=== PATIENT | female | born 1935 | race Caucasian/White ===

== ENCOUNTER 2016-06-01 17:07 | Inpatient (IN) | payer MEDICARE ==
[~2016-06-01] VITALS: Ht 162.6 cm; Wt 57.2 kg
[~2016-06-01 17:07] MED LIST: AUGMENTIN 875-1 EACH PO; BACTRIM DS 8001 TA1 PO; HYDROCHLOROTHIA25 M1 PO; INCRUSE EL62.5 MCG/A IH; LEVAQUIN500 MG PO; PREDNISONE 20MG20 MG PO; PROAIR HFA0.09 MG/AC IH; SYMBICORT 10.10.2 M1 IH
[2016-06-01 17:38] VITALS: BP 109/59
[2016-06-01 17:43] VITALS: BP 109/59
[2016-06-01 18:09] LABS: HEMOGLOBIN 11.8 g/dL (12.2-16.2); LYMPH # 0.5 K/mm3 (0.7-4.5)
[2016-06-01 18:30] LABS: NEUTROPHILS 83 % (42-76)
--- NOTE | 2016-06-01 18:55 | HISTORY AND PHYSICAL REPORT ---
Demographics: Admit date: 06/01/16 Chief complaint: shortness of breath, abdominal pain PRIMARY DIAGNOSIS: HYPOXIA Allergies: Coded Allergies: No Known Allergies (05/24/15) History of present illness: History of present illness: 80 year old female with history of COPD and hypoxia presented to office today with acute onset of abdominal pain last evening. SHe had a restless night without sleep due to pain. Some nausea and some loose stools but no diarrhea. Today pain has been intermittent and more concentrated in the right lower chest and RUQ of abdomen. On exam she was found to be hypoxic with pulse ox of 75% on room air and was admitted for management of likely recurrent CAP and uknown etiology of abdominal pain. Past medical history: Family HX Diabetes No CAD No Hypertension Yes Hyperlipidemia No Cancer No TB No Immunization HX DT/Tetanus Unknown Flu 2015-FSN Pneumonia Received In Past TB Test in last year No General CAD? No Angina: No FL: No Hypertension? Yes Hyperlipidemia? No CHF? No DVT? No PE? No COPD? Yes Asthma? Yes Anemia? No GERD? No Gastric ulcers? No GI Bleed? No Hernia? No Thyroid Problems? No Hypothyroidism? No CVA? No Seizures? No Diabetes? No Renal Insuffiency? No UTI? Yes Stones? No BPH? No GB Disease: No Nephritic Syndrome? No Asplenia? No Hepatitis? No Sickle Cell Disease? No Arthritis? Yes Migraines? No Cataracts? No Glaucoma? No MRSA? No HIV? No TB? No Anxiety? No Depression? No Cancer? No Past Surgical HX Previous Surgery?N CATARACT SX BI-LAT T&A L-KNEE REPAIR Current home meds: Active Scripts BUDESONIDE/FORMOTEROL FUMARATE (Symbicort 160-4.5 Mcg Inhaler) 2 AER IH BID #1 AER Ref 2 Prov: 01/17/16 UMECLIDINIUM BROMIDE (Incruse Ellipta) 62.5 MCG IH DAILY #1 POW Prov: 01/17/16 Discontinued Scripts Amoxicillin/Potassium Clav (Augmentin 875-125 Tablet) 1 EACH PO BID #14 TAB Prov: 01/17/16 DC: 06/01/16 6575 Reported Medications HYDROCHLOROTHIAZIDE (Hydrochlorothiazide) 25 MG PO DAILY Albuterol Sulfate (Proair Hfa) 2 PUFF IH Q6HP PRN BREATHING Social Hx: Smoking HX Tobacco No Alcohol Alcohol: No Hx of Drug Use Drug Use? No Patien't marital status is single Patient's support system is excellent Review of systems: Constitutional chills, malaise, weakness. No: fever. Eyes No: no symptoms reported. Ears, Nose, Mouth, Throat No no symptoms reported Respiratory see HPI, shortness of breath, SOB at rest. No: cough. Cardiovascular edema, No palpitations, No syncope Gastrointestinal/Abdominal see HPI Genitourinary No: dysuria, frequency, hesitancy, hematuria. Musculoskeletal other (hurt all over). Skin No: no symptoms reported. Neurological Yes: weakness. Psychiatric Yes: anxious. Exam: Lab data for last 24 hours: Laboratory Tests 06/01/16 1800: Sodium 138, Potassium 3.7, Chloride 100, Carbon Dioxide 30, BUN 20 H, Creatinine 0.8, Estimated Creat Clear 49 L, Estimated GFR (MDRD) 69, Glucose 99 , Calcium 8.9 06/01/16 1800: B-Natriuretic Peptide 139 H, D-Dimer 1440 *H, WBC 10.2, RBC 4.46, Hgb 11.8 L, Hct 38.5, MCV 86.2, RDW 16.5, Plt Count 193, MPV 6.9 L, Gran % 92.2 H, Gran # 9.4 H, Total Counted 100, Lymphocytes % 5.0 L, Monocytes % 2.7, Eosinophils % 0.1, Basophils % 0.1, Neutrophils 83 H, Lymphocytes (Manual) 11, Lymphocytes # 0.5 L, Monocytes (Manual) 5, Monocytes # 0.3, Eosinophils # 0.0, Eosinophils # (Manual) 1, Basophils # 0.0, Platelet Estimate NORMAL, Hypochromasia 1+, PUBS MCHC 30.6 L, MCH 26.4 L Microbiology 06/01 UNK BLOOD: Anaerobic Blood Culture - ORD 06/01 UNK BLOOD: Aerobic Blood Culture - ORD 06/01 UNK BLOOD: Anaerobic Blood Culture - ORD 06/01 UNK BLOOD: Aerobic Blood Culture - ORD Admission vital signs: 1ST Vital Signs Result Date Time Pulse Ox 92 06/01 1738 O2 Delivery OXYGEN 06/01 1738 B/P 109/59 06/01 1738 Temp 98.3 06/01 1738 Pulse 98 06/01 1738 Resp 18 06/01 1738 Additional information: Pleasant female in mild respiratory distress. Wears hearing aides, clear rhinorrhea, oropharynx unremarkable. Neck supple. Heart with RRR. Lungs diffusely diminished but no overt rales or rhonchi. Abdomen thin, soft, tender in the RUQ, BS normal. 1+ edema bilateral lower extremities. Alert and oriented x 3 Plan: Problem List 1. COPD with acute exacerbation Assessment/Plan oxygen support, review labs and imaging when available, begin IV antibiotics, pulmonary toilet with scheduled nebulizer treatments 2. Hypoxia Assessment/Plan CXR and labs including DDimer pending. Oxygen support 3. Abdominal pain, right upper quadrant Assessment/Plan acute onset, severe intensity. Rec CT abd/pelvis and treat as indicated Plan: see above at 9027
[2016-06-01 19:10] LABS: ALLEN'S TEST ACCEPTABLE; ARTERIAL TCO2 27.4 MMOL/L (23-27); OXYGEN 28% N/C.
[2016-06-01 19:39] VITALS: BP 123/61
[2016-06-01 20:05] VITALS: BP 123/61
[2016-06-01 23:28] VITALS: BP 119/61
[2016-06-02] VITALS (7 sets, daily range): BP systolic 86–121; BP diastolic 50–64
[2016-06-02 04:26] LABS: URINE BILIRUBIN - DIPSTICK NEGATIVE (NEG); URINE BLOOD TRACE-LYSED (NEG)
[2016-06-02 04:29] LABS: URINE SQUAMOUS CELLS OCC #/hpf (0-5)
--- NOTE | 2016-06-02 07:09 | PHARMACY CLINIC NOTE ---
Patient Demographics Patient Demographics Admission date: 06/01/16 Date: 06/02/16 Time: 07 Allergies Coded Allergies: No Known Allergies (05/24/15) HEIGHT- FT: 5 IN: 4.00 K.127 VTE General Information Labs: Laboratory Tests 06/01 1800 Hematology Hgb (12.2 - 16.2 g/dL) 11.8 L Hct (37.0 - 47.0 %) 38.5 Plt Count (142 - 424 K/mm3) 193 Disclaimer The following section includes nursing documentation that has been pulled in for pharmacy review. Patient's VTE score: 3 Patient's VTE Risk: LOW RISK Clinical trial participant? No VTE prophylaxis NQF [id number] VTE prophylaxis ordered? Yes Type of prophylaxis/treatment: COMFORT at 0709
[2016-06-02 07:21] LABS: LYMPH # 0.6 K/mm3 (0.7-4.5); LYMPH % 6.8 % (10-50.0)
[2016-06-02 07:25] LABS: HEMOGLOBIN 10.4 g/dL (12.2-16.2)
--- NOTE | 2016-06-02 08:46 | ACUTE CARE PROGRESS NOTE (QUA) ---
Progress Notes Subjective Date 06/02/16 Time 0842 Note No events overnight. States that she was able to rest. Abdominal pain is resolved but she continues to have some intermittent right-sided chest pain. Appears mildly dyspneic at rest. Ventimask in place. Alert and oriented x 3. Heart with RRR, lungs with more dense crackles in the right base. Abdomen soft, thin, NT/ND, BS present. Trace edema in the right lower extremity. Patient/family reports: feeling better, pain, cough Nursing reports: no complaints Objective Findings Last VS-Temp:99.2 B/P:105/50 Pulse:99 Resp:20 SaO2:93 OXYGEN Last weight lbs:117 oz:2 K.127 Method:Bed Scales Reviewed: medications, vital signs, lab results, radiology report Assessment/Plan Problem List 1. COPD with acute exacerbation Assessment/Plan: add steroids today 2. Hypoxia Assessment/Plan: continue oxygen supplement and wean as tolerated 3. Abdominal pain, right upper quadrant Assessment/Plan: preliminary CT negative for acute findings 4. Pneumonia involving right lung Assessment/Plan: Continue IV levaquin, FU on cultures when available 5. D-dimer, elevated Assessment/Plan: with significant pneumonia and right lung effusion, further workup not indicated at this time. Patient condition Stable, Guarded Plan: continue current care This inpt stay is expected to cross 2 MNs from start of care Yes at 1527
--- NOTE | 2016-06-02 11:42 | RADIOLOGY REPORT PS360 ---
CHEST(2 VIEWS-NOT PORTABLE) COMPARISON: PA and lateral chest 01/14/2016 HISTORY: Cough, suspect pneumonia TECHNIQUE: PA and lateral chest FINDINGS: Underlying emphysematous changes are again noted with hyperexpansion lung gant. Cardiac size is normal however there is mild vascular congestion. There is ill-defined pneumonic infiltrate right middle lobe with partial collapse and with partial silhouetting of the right heart border. There is pneumonia involving the posterior basilar segment right lower lobe as well. There is blunting of the right costo phrenic angle and there likely is a small pleural effusion. There is kyphotic curvature generalized osteopenia the thoracic spine. IMPRESSION: 1. Right middle lobe pneumonia with partial collapse in addition to pneumonia involving the right lower lobe. 2. Mild vascular congestion and small right pleural effusion likely representing mild chronic congestive failure superimposed upon underlying emphysematous change
--- NOTE | 2016-06-02 11:58 | RADIOLOGY REPORT PS360 ---
CT ABD PELVIS W/ CONTRAST COMPARISON: None HISTORY: Generalized abdominal pain, patient with known pneumonia TECHNIQUE: Multiaxial scans obtained from hemidiaphragms to the pelvic floor and were performed with IV and oral contrast. Sagittal and coronal reformats were evaluated as well. FINDINGS: Scans through the lower chest show a pneumonic infiltrate right middle lobe with partial collapse of the right middle lobe. There also is a coarse patchy ill-defined pneumonia in the right lower lobe primarily posterior basal segment and this is associated with a small to moderate-sized reactive pleural effusion. There is mild cardiomegaly and the pleural fluid could be secondary to mild chronic congestive failure. The liver is normal size showing a small 1 cm hepatic cyst anterior aspect right lobe. The spleen stomach Eckerson gallbladder appear grossly normal. The adrenal glands are normal. The kidneys are normal in size and show symmetrical function with no hydronephrosis or other abnormality. The small bowel appear grossly normal except for mildly dilated mid to distal small bowel loop left lower quadrant. I do not definitely identify the appendix but there are no pericecal inflammatory changes. There is oral contrast in the ascending and descending colon. The uterus is normal size and there is apparent calcified uterine fibroid noted. Urinary bladder is decompressed. Is no free fluid in the pelvis. There is mild degenerative disc disease L4-5 level. There is diffuse arteriosclerotic calcification of the abdominal aorta but there is no aneurysm. IMPRESSION: Right middle lobe and right lower lobe pneumonia with associated small right pleural effusion either reactive or possibly secondary to mild chronic congestive heart failure 2. Mildly dilated loops of small bowel left lower quadrant possibly reflecting a mild enteritis but there is no evidence of obstruction, agree with the [facility] report.
[2016-06-03] VITALS (7 sets, daily range): BP systolic 93–121; BP diastolic 49–63
[2016-06-03 06:51] LABS: HEMOGLOBIN 9.5 g/dL (12.2-16.2); LYMPH # 0.3 K/mm3 (0.7-4.5); LYMPH % 6.9 % (10-50.0)
--- NOTE | 2016-06-03 07:42 | ACUTE CARE PROGRESS NOTE (QUA) ---
See Addendum Progress Notes Subjective Date 06/03/16 Time 0738 Note No events overnight. She appears much more comfortable this morning, on [place] oxygen, and reports that her right chest is still sore but much improved. No fevers overnight. WBC normal this morning. Sputum culture pending. Daughter at BS. Patient alert, oriented x 3, NAD. Heart with RRR, lungs with better air movement, faint rales in the right base. Abdomen soft, NT/ND, BS present. No edema. Patient/family reports: feeling better, cough, shortness of breath Nursing reports: no complaints Objective Findings Last VS-Temp:98.8 B/P:93/49 Pulse:80 Resp:20 SaO2:92 OXYGEN Last weight lbs:117 oz:3 K.155 Method:Bed Scales Reviewed: medications, vital signs, lab results Assessment/Plan Problem List 1. COPD with acute exacerbation 2. Hypoxia 3. Abdominal pain, right upper quadrant 4. Pneumonia involving right lung Assessment/Plan: with partial collapse RML. FU CXR pending this morning but exam significantly improved. Continue IV levaquin. Would recommend pulmonary rehabiliation post- discharge and may need supplement oxygen at home. 5. D-dimer, elevated Patient condition Improving Plan: continue current care This inpt stay is expected to cross 2 MNs from start of care Yes at 0742 at 0806
--- NOTE | 2016-06-03 08:30 | RADIOLOGY REPORT PS360 ---
CHEST-PORTABLE Ordering Physician: Nilson Coffman MD Patient Age: 80 years: Female HISTORY: re-evaluate pneumonia, effusionfollow up pneumonia. TECHNIQUE: AP portable upright chest COMPARISON. 01/14/2016 and most recent chest film 06/02/2015 FINDINGS Underlying COPD and emphysematous changes. Slight progression of density at the right lung base further obscuring the right hemidiaphragm. Previous June 01, 2016 chest films showed RML partial collapse along with pneumonia involving the right lower lobe. These features are again evident and show no improvement. If anything appear more pronounced on today's study with less optimal expansion right lung. Right heart border is obscured by the right middle lobe and airspace disease.. RML has not reexpanded. Right lower lobe infiltrate spans across the inferior right lung base above the right hemidiaphragm and obscures right hemidiaphragm. Cannot exclude a small pleural effusion as well. This chest film is rotated to the right which may accentuate these findings as well as the sections with the more pronounced lung markings on right. Difficult to exclude early interstitial infiltrate right mid and upper lung on this study. The left lung appears unchanged hyperexpanded with chronic changes. There is some mild vascular engorgement but no overt CHF. The heart is normal in size. This CXR rotated to the right but there does seem to question slight shift mediastinum to the right which may reflect volume loss right lung base IMPRESSION----- No improvement. Slight Progression of findings right lung base since 06/01/2016 CXR RML collapse and airspace disease persists-obscured right heart border More pronounced Right lower lobe infiltrate further obscures right hemidiaphragm Possible scant right pleural effusion
[2016-06-03 08:57] LABS: NEUTROPHILS 89 % (42-76)
[2016-06-04] VITALS (7 sets, daily range): BP systolic 97–130; BP diastolic 60–80
[2016-06-04 07:03] LABS: LYMPH # 0.4 K/mm3 (0.7-4.5); LYMPH % 7.4 % (10-50.0)
[2016-06-04 07:17] LABS: HEMOGLOBIN 11.2 g/dL (12.2-16.2)
--- NOTE | 2016-06-04 08:44 | ACUTE CARE PROGRESS NOTE (QUA) ---
Progress Notes Admission Date: 06/01/16 Antimicrobial stewardship: If this patient was administered antibiotics in the last 48 hours please complete the antimicrobial stewardship section of this template. Subjective Date 06/04/16 Time 0843 Note Patient is without complaints this morning. She continues to have cough and has been able to produce a small amount of brown sputum. She appears comfortable. Nasal cannula is in place. Breath sounds are diminished at the RIGHT base with faint rales. Heart has a regular rate and rhythm. Continue Levaquin and cefepime. Await sputum and blood cultures. Increase I encouraged the patient to ambulate. Incentive spirometry has been ordered Objective Findings Last VS-Temp:97.6 B/P:121/63 Pulse:81 Resp:24 SaO2:93 OXYGEN Last weight lbs:116 oz:6 K.787 Method:Bed Scales Laboratory Tests 06/04/16 0634: Sodium 139, Potassium 3.9, Chloride 105, Carbon Dioxide 30, BUN 15, Creatinine 0.7, Estimated Creat Clear 55, Estimated GFR (MDRD) 81, Glucose 137 H, Calcium 8.3 L, WBC 5.5, RBC 4.13 L, Hgb 11.2 L, Hct 37.4, MCV 90.5, RDW 16.3, Plt Count 215, MPV 5.9 L, Gran % 90.6 H, Gran # 5.0, Lymphocytes % 7.4 L, Monocytes % 1.7, Eosinophils % 0.2, Basophils % 0.1, Lymphocytes # 0.4 L, Monocytes # 0.1, Eosinophils # 0.0, Basophils # 0.0, PUBS MCHC 30.0 L, MCH 27.2 Assessment/Plan Problem List 1. COPD with acute exacerbation 2. Hypoxia 3. Abdominal pain, right upper quadrant 4. Pneumonia involving right lung 5. D-dimer, elevated Patient condition Stable This inpt stay is expected to cross 2 MNs from start of care Yes Antibiotic Stewardship (2) Current Culture Results Microbiology 06/02 173 SPUTUM: Organism ID (Sequencing 2)(KENYON) - ORD 06/02 724 SPUTUM: Sputum Culture - RES 06/02 724 SPUTUM: Gram Stain - RES 06/02 001 URINE CC: Urine Culture - COMP 06/01 1799 BLOOD: Anaerobic Blood Culture - RECD 06/01 1799 BLOOD: Aerobic Blood Culture - RECD Infxn that will respond? Yes Right drug,dose,and route? Yes More targeted antbx? Yes How long atbx needed? 7 at 0844
[2016-06-04 17:01] LABS: NEUTROPHILS 92 % (42-76)
[2016-06-05 04:16] VITALS: BP 119/74
--- NOTE | 2016-06-05 08:31 | ACUTE CARE PROGRESS NOTE (QUA) ---
Progress Notes Admission Date: 06/01/16 Subjective Date 06/05/16 Time 0830 Note The patient feels slightly better but continues to have a cough and some shortness of air and feels very weak. Continues to have dense crackles in the right middle and lower lung field. Alert , pleasant. Short of air with incentive spirometry use, heart rate regular. No edema noted. Objective Findings Last VS-Temp:98.0 B/P:119/74 Pulse:75 Resp:18 SaO2:96 OXYGEN Last weight lbs:116 oz:6 K.787 Method:Bed Scales Assessment/Plan Problem List 1. COPD with acute exacerbation 2. Hypoxia 3. Abdominal pain, right upper quadrant 4. Pneumonia involving right lung 5. D-dimer, elevated Patient condition Improving Plan: continue current care, await culture result. PT/OT evaluation for home health evaluation, will need to be discharged with O2 and nebulizer treatments This inpt stay is expected to cross 2 MNs from start of care Yes Antibiotic Stewardship (2) Current Culture Results Microbiology 06/02 7745 SPUTUM: Organism ID (Sequencing 2)(KENYON) - ORD 06/02 724 SPUTUM: Sputum Culture - RES 06/02 724 SPUTUM: Gram Stain - RES 06/02 001 URINE CC: Urine Culture - COMP 06/01 1800 BLOOD: Anaerobic Blood Culture - RECD 06/01 1800 BLOOD: Aerobic Blood Culture - RECD Infxn that will respond? Yes Right drug,dose,and route? Yes More targeted antbx? Yes How long atbx needed? 7 at 0831
[2016-06-05 08:50] VITALS: BP 127/77
[2016-06-05 09:13] VITALS: BP 127/77
[2016-06-05 12:07] VITALS: BP 119/72
[2016-06-05 17:10] VITALS: BP 123/70
[2016-06-05 19:43] VITALS: BP 131/79
[2016-06-06] VITALS (8 sets, daily range): BP systolic 120–134; BP diastolic 62–82
--- NOTE | 2016-06-06 08:08 | ACUTE CARE PROGRESS NOTE (QUA) ---
Progress Notes Subjective Date 06/06/16 Time 0806 Note Patient feels a little better than yesterday but still fatigued. Unfortunately had a documented temperature of 100.4 early this morning. Her lung sounds improved with slightly better aeration in both lower lung gant , heart rate regular. Abdomen soft, no edema noted. Objective Findings Last VS-Temp:98.1 B/P:129/75 Pulse:84 Resp:20 SaO2:92 OXYGEN Last weight lbs:130 oz:5 K.109 Method:Bed Scales Assessment/Plan Problem List 1. COPD with acute exacerbation 2. Hypoxia 3. Abdominal pain, right upper quadrant 4. Pneumonia involving right lung 5. D-dimer, elevated Patient condition Improving Plan: continue current care, given the fever will observe one more day, Mucomyst for secretion mobilization, try to get another sputum sample. Pulmonary evaluation for abnormal chest x-ray and CT scan. Repeat chest x-ray tomorrow. This inpt stay is expected to cross 2 MNs from start of care Yes Antibiotic Stewardship (2) Infxn that will respond? Yes Right drug,dose,and route? Yes More targeted antbx? Yes at 0808
--- NOTE | 2016-06-06 15:58 | CONSULT NOTE ---
See Addendum Consult Note Note: Reason for consultation: Pleural effusion Requested by Dr. Coffman "I got so short of breath." Ms. Argueta is a 80-year-old woman who was diagnosed with emphysema more than a decade ago. She had had slowly progressive dyspnea on exertion for years before that. She began smoking in her late teens and quit one package of cigarettes daily when the diagnosis was made. 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 She was hospitalized here in 2009 for community-acquired pneumonia and did well for several years. This last year, however, she has had pneumonia 3 times and was hospitalized once. This illness began with increased cough and shortness of breath followed by the sudden onset of severe upper abdominal pain, particularly on the RIGHT side. This was associated with nausea but no vomiting and she does not think she had a fever. She has had no pleuritic chest pain. She did experience some chills. Since admission, she has been treated with cefepime, levofloxacin and prednisone. She feels tremendously improved now. Between acute illnesses, Ms. Argueta feels fairly well. She has not required continuous oxygen therapy until this admission and she expects to be sent home on it. Normally, she has no cough or sputum production. Her appetite has been good and her weight has been stable. She sleeps comfortably. She has no symptoms of esophageal reflux. Past medical history is significant for hypertension, osteoarthritis and cataracts. LEFT knee repair is mentioned in one of the notes but she told me she had no surgeries. She has had the pneumococcal and influenza vaccines and there is no known exposure to tuberculosis. In her job, she has had tuberculin skin tests and they 've always been negative. Social history: Ms. 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 She also worked in a school cafeteria and has been at [facility] for the last 6 years. Her of many years in 2004 at the age of 70 of disseminated cancer. She is not sure of the type. She has 3 healthy children and 5 healthy grandchildren as well as 6 healthy great-grandchildren whom she enjoys. She lives alone in her own home and has a cat. She takes care of her own housework and she climbs up and down the basement stairs to do laundry. Family history: This is significant for emphysema in her father. ALLERGIES: No known ALLERGIES. Review of systems: She told me she has glaucoma. She wears dentures and has worn them since the age of 18. She has generalized aches and pains related to osteoarthritis. The rest of a 14 point review of systems is negative except for what mentioned in the present illness. On physical examination, is a very pleasant and articulate, thin elderly woman who is in excellent spirits and in no acute distress. She is sitting in a chair wearing oxygen at 2 L/m by nasal cannula. Vital signs: Blood pressure 134/75, temperature 98.3 (but it was 99.6 around the time of admission), pulse 85, respiratory rate 20 and oxygen saturation 93 percent on the supplemental oxygen. HEENT: Sclerae clear; conjunctivae pink; external nares unremarkable; oropharynx shows no mucosal lesions and she is edentulous. Neck: No adenopathy. Chest: Increased AP diameter; symmetrical expansion; no chest wall tenderness; hyperresonance by percussion diffusely except for the RIGHT base posteriorly. It is dull in that region. Breath sounds are diminished in that region. There were inspiratory crackles initially which cleared with deep breathing. There is no egophony. Over the rest of the chest, there is prolonged expiration but no adventitious sounds. Heart: PMI near xiphoid; regular rhythm; no murmur. Abdomen: Bowel sounds present; soft, nontender, no masses or organomegaly. Skin: No rash Musculoskeletal: No elton arthritis Neurological: Grossly intact Extremities: No clubbing but there is 2+ edema of the lower legs and ankles. I personally reviewed chest x-rays performed recently and older x-rays as well. I also reviewed the abdominal CT scan. She has evidence of infiltrate in the RIGHT lower lobe and some in the LEFT lower lobe. There is a dense infiltrate in the RIGHT middle lobe with volume loss as well. There is a pleural effusion on the RIGHT. On admission, she had a leukocytosis with a LEFT shift. The leukocytosis has resolved. At home, she is on Symbicort and Incruse. Assessment and plan: appears to have severe chronic obstructive pulmonary disease and has had recurrent episodes of pneumonia lately. She seems to be recovering from her present illness but I'm concerned about the volume loss on the RIGHT. I suggest a CT scan of the chest with contrast if possible in order to get a better look at the lungs, pleura and mediastinum. The effusion may have increased in size. On the abdominal CT, it looks rather small. She is fluid overloaded I think and may benefit from diuresis. Fluid overload could contribute to the increasing effusion if present. If it has increased in size, I would suggest tapping it under ultrasoun guidance. She did have a very long smoking history and, although she quit a decade ago, she is still at increased risk for malignancy. I would recommend de-escalating antibiotics based upon the sputum culture since blood cultures are negative. I also don't think she likely needs prednisone, especially since she has such a serious infection. If she hasn't had Prevnar 13, I would offer that to her before discharge. After she has recovered, I'd like to see her and may pursue further the cause of recurrent pneumonias unless the CT shows something definitive. Thank you for the opportunity to participate in 's care. at 1556
[2016-06-07] VITALS (8 sets, daily range): BP systolic 104–141; BP diastolic 59–81
--- NOTE | 2016-06-07 08:43 | ACUTE CARE PROGRESS NOTE (QUA) ---
Progress Notes Subjective Date 06/07/16 Time 0841 Note Patient remains afflicted with a little bit of dyspnea and low oxygen saturations when moving. The patient is pleasant and alert, oriented x3. Lungs remain well aerated on the left with rhonchi and crackles in the right lower and middle lung field but symmetric air entry. Heart rate irregular, trace ankle edema. Pulmonary consultation note reviewed and appreciated. Objective Findings Last VS-Temp:97.9 B/P:104/59 Pulse:78 Resp:20 SaO2:93 OXYGEN Last weight lbs:132 oz:9 K.129 Method:Bed Scales Assessment/Plan Problem List 1. COPD with acute exacerbation 2. Hypoxia 3. Abdominal pain, right upper quadrant 4. Pneumonia involving right lung 5. D-dimer, elevated Patient condition Stable, agree with IV Lasix ingestion, this will be done today. CT scan of chest, possible intervention with CT surgery on Sunday if needs drainage for diagnostic purposes This inpt stay is expected to cross 2 MNs from start of care Yes Antibiotic Stewardship (2) Infxn that will respond? Yes Right drug,dose,and route? Yes More targeted antbx? Yes at 0843
--- NOTE | 2016-06-07 10:37 | RADIOLOGY REPORT PS360 ---
CHEST(2 VIEWS-NOT PORTABLE) HISTORY: Follow-up effusion f/u effusion ORDERING PHYSICIAN: Nilson Coffman MD PATIENT AGE: 80 years COMPARISON: 06/03/2016 FINDINGS: Progress PA and lateral chest shows small bilateral effusions. The right side is slightly larger than the left. There is associated by basilar opacification of the lungs also greater on the right compared to left side. There is now some patchy density in the right upper lobe. There is underlying COPD. Normal heart size. No acute bony anomalies. IMPRESSION: Small bilateral effusions with biopsy lateral lower lobe airspace disease consistent with pneumonia and/or volume loss which is not significant changed in the lower lobes. There is some new airspace disease/pneumonia in the right upper lobe
--- NOTE | 2016-06-07 16:22 | RADIOLOGY REPORT PS360 ---
CT CHEST W/ CONTRAST INDICATION: RT MIDDLE LOBE INFILTRATE, PNEUMONIA ORDERING PHYSICIAN: Nislon Coffman MD PATIENT AGE: 80 years COMPARISON: Abdomen CT of 06/01/2016 TECHNIQUE: Axial images are obtained following the intravenous administration of 75 mL's of Isovue-370 contrast. Sagittal and coronal reformatted images are reviewed as well. FINDINGS: Moderate centrilobular emphysematous changes are present. There is a moderate sized right pleural effusion as well as fluid in the right major fissure. There is right middle lobe collapse. Consolidation is present in the right lung base as well. The right middle lobe collapse was present on 06/01/2016. The consolidation in the right lung base anteriorly has developed in the interval. The right-sided pleural effusion has increased in size with increasing compressive atelectatic change in the right lower lobe. There are small lymph nodes present in the mediastinum the largest in the precarinal region at 2 x 1.7 cm. Small nodes are present in the right hilum. No obvious central obstructing lesion is evident. There is a small left pleural effusion with minimal atelectatic changes in the inferior lingula on the left. No evidence of thoracic aortic aneurysm. There is moderate thoracic kyphosis with mild thoracic scoliosis convex left. There is a lucency involving the superior aspect of the endplate at T12 on the left nonspecific. Upper abdominal images show at least 3 hypodensities of the liver and may be related to cyst. IMPRESSION: 1. Emphysematous changes with moderate sized right pleural effusion. Right effusion has increased in size compared to the previous exam with increasing right basilar volume loss/consolidation and persistent right middle lobe collapse and also with increasing consolidation in the right upper lobe anteriorly and inferiorly. 2. Small left pleural effusion now noted. 3. Mild mediastinal and right hilar adenopathy. No central obstructing lesion evident.
[2016-06-08] VITALS (11 sets, daily range): BP systolic 98–163; BP diastolic 56–78
--- NOTE | 2016-06-08 09:55 | ACUTE CARE PROGRESS NOTE (QUA) ---
Progress Notes Subjective Date 06/08/16 Time 0800 Note Patient sitting in bed. Reports some improvement of shortness of breath. Continues to be extremely dyspneic with minimal exertion, states saturations dropped to 62% with ambulation. This is stated by patient, no documentation found in record. Alert and oriented. Irregular rate. Pulses 2+, trace BLE edema. LS with faint crackles/rhonchi right base, somewhat diminished in right base compared to left. Abdomen soft, and non-tender. Normoactive bowel sounds. Nursing reports: shortness of breath Objective Findings Last VS-Temp:97.7 B/P:102/66 Pulse:83 Resp:18 SaO2:67 OXYGEN Last weight lbs:129 oz:0 K.513 Method:Bed Scales Reviewed: medications, vital signs, lab results, x-ray personally reviewed, consult note Assessment/Plan Problem List 1. COPD with acute exacerbation 2. Hypoxia 3. Abdominal pain, right upper quadrant 4. Pneumonia involving right lung 5. D-dimer, elevated Patient condition Improving Plan: continue current care This inpt stay is expected to cross 2 MNs from start of care Yes Comments: Continue IV antibiotics. Dr. Boyle and suggest ultrasound guided thoracentesis. CT reveiwed with Dr. Nolasco who agrees to drain later today. Will send fluid for culture. Antibiotic Stewardship (2) Infxn that will respond? Yes Right drug,dose,and route? Yes More targeted antbx? Yes at 0954
--- NOTE | 2016-06-08 12:18 | CONSULT NOTE ---
Standard Demographics Patient Demo Date of Consultation: 06/08/16 Referring Provider: Nilson Coffman MD Reason for Consultation: pleural effusion PRIMARY DIAGNOSIS: HYPOXIA Allergies: Coded Allergies: No Known Allergies (05/24/15) History of Present Illness Chief Complaint: Shortness of air History of Present Illness: This is a 80-year-old female seen in consultation from the service of Dr. Coffman for evaluation regarding bilateral pleural effusions. She has been undergoing therapy for likely pneumonic effusion, but has been developing increasing shortness of air (particularly with exertion). Past Medical History Reports: COPD, hypertension. Surgical History Previous Surgery?N CATARACT SX BI-LAT T&A L-KNEE REPAIR Allergies Coded Allergies: No Known Allergies (05/24/15) Medications: Active Scripts BUDESONIDE/FORMOTEROL FUMARATE (Symbicort 160-4.5 Mcg Inhaler) 2 AER IH BID #1 AER Ref 2 Prov: 01/17/16 UMECLIDINIUM BROMIDE (Incruse Ellipta) 62.5 MCG IH DAILY #1 POW Prov: 01/17/16 Discontinued Scripts Amoxicillin/Potassium Clav (Augmentin 875-125 Tablet) 1 EACH PO BID #14 TAB Prov: 01/17/16 DC: 06/01/16 1855 Reported Medications HYDROCHLOROTHIAZIDE (Hydrochlorothiazide) 25 MG PO DAILY Albuterol Sulfate (Proair Hfa) 2 PUFF IH Q6HP PRN BREATHING Family history Postive for: HTN. Smoking Hx Tobacco: No Smoker: Former Smoker Type: Cigarettes Packs/day: 1 1/2 - 2 Packs Are you/the child exposed to second-hand smoke: No Alcohol Alcohol: No Hx of Drug Use Drug Use? No Review of Systems Constitutional No: chills. Skin No: bruising. Immune/allergy No: anaphalaxis. Eyes No: discharge. ENT No: nose bleed. Respiratory Positive for: dyspnea on exertion, shortness of air. GI No: nausea, vomitting. (female) No: hematuria. Heme No: petechia. Endocrine No: polydipsia. Neurological No: change in LOC. Psychiatric No: anxious. Physical Exam VS/I&O Vital Signs Date Time Temp Pulse Resp B/P Pulse O2 O2 Flow FiO2 Ox Delivery Rate 06/08 1050 3.5 06/08 0900 3.5 06/08 0827 97.7 83 18 102/66 67 3.5 06/08 0800 98.6 86 18 137/78 92 OXYGEN 06/08 0656 3.5 06/08 0615 3.5 06/08 0615 67 OXYGEN 3.5 / 0515 3 06/08 0501 97.7 83 18 102/66 91 OXYGEN 06/08 0300 3 06/08 0100 3 06/07 2353 98.3 87 18 131/76 90 OXYGEN 06/07 2300 3 06/07 2115 3 06/07 2115 98.1 82 18 129/81 92 3 06/07 2005 71 ROOM AIR 06/07 1922 98.1 82 18 129/81 92 OXYGEN 06/07 1856 3 06/07 1700 3 06/07 1600 98.1 91 18 111/77 90 OXYGEN 06/07 1500 3 06/07 1300 3 I&O 06/08 0700 Intake Total 720 Output Total 1600 Balance -880 Intake, Oral 720 Output, Stool Output, Urine 1600 Patient 58.513 kg Weight Exam General appearance no acute distress Respiratory no distress, on oxygen Cardiovascular regular rate and rhythm Abdomen soft Findings/Data CT scan and plain films show scant left-sided effusion. A fairly small to moderate right-sided effusion is noted. Plan Plan: Impression: Bilateral pleural effusions - left-sided effusion is scant. Right-sided effusion is probably small to moderate in size. Plan: The right-sided pleural fluid is dependent and would likely be amenable to thoracentesis. The risk of a non-guided bedside thoracentesis is increased secondary to the fact that this in not a large effusion. To minimize the risk for pneumothorax or other complication, I recommend ultrasound-guided thoracentesis. at 1224
--- NOTE | 2016-06-08 16:05 | RADIOLOGY REPORT PS360 ---
CHEST(2 VIEWS-NOT PORTABLE) HISTORY: POST THORACENTISIS, pneumonia ORDERING PHYSICIAN: Nilson Coffman MD PATIENT AGE: 80 years COMPARISON: 06/07/2016 FINDINGS: Inspiration and x-ray shouldn't views of the chest are performed along with a lateral view. Right-sided pleural effusion is slightly smaller than when compared to the previous exam. There is no evidence of pneumothorax. Dense consolidation is present in the right middle lobe and there is volume loss or infiltrate in the right lung base. Patchy pneumonia is present in the right midlung and slightly worse. Left lower lobe atelectasis with small effusion noted unchanged. COPD. IMPRESSION: 1. No evidence of postthoracentesis pneumothorax. 2. Slight decrease in size of right pleural effusion with by basilar airspace disease not significant changed. Right upper lobe pneumonia slightly worse
--- NOTE | 2016-06-08 16:43 | RADIOLOGY REPORT PS360 ---
US THORACENTESIS HISTORY: RT PLEURAL EFFUSION ORDERING PHYSICIAN: Nilson Coffman MD PATIENT AGE: 80 years COMPARISON: None PROCEDURE: Following obtaining informed consent and after appropriate Time out, under aseptic conditions and local anesthesia with 1% buffered lidocaine using sonographic guidance a 4 Romanian one-step catheter was inserted into the largest pocket of fluid localized in the right posterior hemithorax. Approximately 500 mL of Serosanguineous fluid was drained. The patient tolerated the procedure well and left the radiology suite in stable condition. Post procedure radiograph did not demonstrate any evidence of pneumothorax. The patient did notice improvement in her breathing during procedure. IMPRESSION: Successful sonographic guided thoracentesis without complication
--- NOTE | 2016-06-08 17:00 | RADIOLOGY REPORT PS360 ---
CHEST(2 VIEWS-NOT PORTABLE) HISTORY: FOLLOW UP THORACENTESIS ORDERING PHYSICIAN: Nilson Coffman MD PATIENT AGE: 80 years COMPARISON: Same day FINDINGS: No change in small bilateral pleural effusions as well as bilateral lower lobe, right middle lobe, and right upper lobe areas of consolidation consistent with bilateral pneumonia with superimposed COPD. No evidence of pneumothorax. There are degenerative changes in the thoracic spine with mild kyphosis. IMPRESSION: No change bilateral pneumonia with small effusions and no evidence of postthoracentesis pneumothorax
[2016-06-09 00:11] VITALS: BP 123/64
[2016-06-09 04:27] VITALS: BP 132/73
--- NOTE | 2016-06-09 07:20 | SURGEON PROGRESS NOTE ---
Subjective data Subjective data: Feels "pretty OK". She is "grateful for the procedure yesterday". She states that she continues to "breathe better". Objective data Vitals,I&O,and Labs: Vital signs, intake and output,and available lab data for the last 24 hours is as noted below. Vital Signs Date Time Temp Pulse Resp B/P Pulse O2 O2 Flow FiO2 Ox Delivery Rate 06/09 0648 3 06/09 0630 3 06/09 0541 3 06/09 0527 3 06/09 0427 3 06/09 0427 98.2 90 20 132/73 86 OXYGEN 3 06/09 0311 3 06/09 0127 3 06/09 0011 3 06/09 0011 98.3 81 18 123/64 94 OXYGEN 3 06/08 2316 3 06/08 2146 3 06/08 2122 3 06/08 2030 98.5 83 20 110/64 100 3 06/08 1926 3 06/08 1926 98.5 83 20 110/64 100 OXYGEN 3 06/08 1904 3 06/08 1712 3 06/08 1712 92 3 06/08 1702 3 06/08 1556 97.7 80 20 113/67 94 OXYGEN 06/08 1502 3 06/08 1450 98.2 81 20 117/65 96 3 06/08 1420 98.3 82 20 109/71 95 3 06/08 1350 98.2 83 20 98/57 93 3 06/08 1320 98.1 90 20 108/58 90 3 06/08 1305 98.2 82 20 119/56 90 3 06/08 1300 3.5 06/08 1250 98.2 75 20 136/73 92 3 06/08 1235 97.9 71 20 163/72 100 3 06/08 1050 3.5 06/08 0900 3.5 06/08 0827 97.7 83 18 102/66 67 3.5 06/08 0800 98.6 86 18 137/78 92 OXYGEN 06/08 1500 06/08 2300 06/09 0700 Intake Total 120 480 740 Output Total Balance 120 480 740 Intake, IV 500 Intake, Oral 120 480 240 Output, Stool Patient 57.209 kg Weight Laboratory Tests Test Result Date Time Blood Gas ABG pH (MMOL/L) 7.50 06/01 1902 ABG pCO2 (Temp Corrct (MMHG) 34.8 06/01 1902 ABG pO2 (Temp Correct (MMHG) 44.0 06/01 1902 ABG HCO3 (MMOL/L) 26.3 06/01 1902 ABG Total CO2 (MMOL/L) 27.4 06/01 1902 ABG O2 Sat (Calculated) (%) 80.0 06/01 1902 ABG Base Excess (MMOL/L) 3.0 06/01 1902 Gustavo Test ACCEPTABLE 06/01 1902 Chemistry Sodium (mmoL/L) 139 06/04 633 Potassium (mmoL/L) 3.9 06/04 633 Chloride (mmoL/L) 105 06/04 633 Carbon Dioxide (mmoL/L) 30 06/04 633 BUN (mg/dL) 15 06/04 633 Creatinine (mg/dL) 0.7 06/04 633 Estimated Creat Clear (ML/MIN) 55 06/04 633 Estimated GFR (MDRD) (ML/MIN) 81 06/04 633 Glucose (mg/dL) 137 06/04 633 Calcium (mg/dL) 8.3 06/04 633 B-Natriuretic Peptide (pg/mL) 139 06/01 1800 Coagulation D-Dimer (ng/mL) 1440 06/01 1800 Hematology WBC (K/MM3) 5.5 06/04 633 RBC (M/mm3) 4.13 06/04 633 Hgb (g/dL) 11.2 06/04 633 Hct (%) 37.4 06/04 633 MCV (fl) 90.5 06/04 633 RDW (%) 16.3 06/04 633 Plt Count (K/mm3) 215 06/04 633 MPV (fl) 5.9 06/04 633 Gran % (%) 90.6 06/04 633 Gran # (K/mm3) 5.0 06/04 633 Total Counted (#CELLS) 100 06/04 633 Lymphocytes % (%) 7.4 06/04 633 Monocytes % (%) 1.7 06/04 633 Eosinophils % (%) 0.2 06/04 633 Basophils % (%) 0.1 06/04 633 Neutrophils (%) 92 06/04 633 Band Neutrophils (%) 4 06/04 633 Lymphocytes (Manual) (%) 3 06/04 633 Lymphocytes # (K/mm3) 0.4 06/04 633 Monocytes (Manual) (%) 1 06/04 633 Monocytes # (K/mm3) 0.1 06/04 633 Eosinophils # (K/mm3) 0.0 06/04 633 Eosinophils # (Manual) (%) 1 06/01 1800 Basophils # (K/MM3) 0.0 06/04 633 Toxic Granulation SL. 06/04 633 Platelet Estimate NORMAL 06/04 633 Polychromasia SL. 06/04 633 Hypochromasia 1+ 06/04 633 Rouleaux SL 06/04 633 PUBS MCHC (g/dl) 30.0 06/04 633 Immunology MCH (pg) 27.2 06/04 633 Serology Mycoplasma pneumon IgM NON-REACTIVE 06/01 1800 Urines Urine Color YELLOW 06/02 9 Urine Appearance CLEAR 06/02 9 Urine pH 6.0 06/02 9 Ur Specific [place] <= 1.005 06/02 9 Urine Protein (mg/dL) TRACE 06/02 9 Urine Ketones (mg/dL) TRACE 06/02 9 Urine Blood TRACE-LYSED 06/02 9 Urine Nitrate NEGATIVE 06/02 9 Urine Bilirubin NEGATIVE 06/02 9 Urine Urobilinogen (E.U./dL) 0.2 06/02 9 Ur Leukocyte Esterase NEGATIVE 06/02 9 Urine RBC (rbc/hpf) 3-5 06/02 9 Ur Squamous Epith Cells (#/hpf) OCC 06/02 9 Urine Bacteria 1+ 06/02 9 Urine Glucose NEGATIVE 06/02 9 Assessment findings Assessment Exam General appearance: no acute distress Cardiovascular: regular rate & rhythm Respiratory: no respiratory distress, on oxygen Patient plan Diagnoses: RIGHT pleural effusion - clinically improved status post ultrasound-guided thoracentesis yesterday LEFT pleural effusion - minimal Plan: continue care as per primary service Additional data: The surgical service will continue to be follow. If there is an acute change in her overall status such as pneumothorax, a chest tube can be immediately placed. If she develops a large recurrent effusion, a bedside thoracentesis can certainly be performed. However, if she begins to develop a small to moderate recurrent symptomatic effusion, ultrasound guidance will remain helpful. Antibiotic Stewardship (2) Infxn that will respond? Yes Right drug,dose,and route? Yes More targeted antbx? Yes at 0737
--- NOTE | 2016-06-09 09:05 | DISCHARGE SUMMARY STANDARD ---
Demographics Admit date: 06/01/16 Discharge date: 06/09/16 History of present illness History of present illness 80 year old female with history of COPD and hypoxia presented to office today with acute onset of abdominal pain last evening. SHe had a restless night without sleep due to pain. Some nausea and some loose stools but no diarrhea. Today pain has been intermittent and more concentrated in the right lower chest and RUQ of abdomen. On exam she was found to be hypoxic with pulse ox of 75% on room air and was admitted for management of likely recurrent CAP and uknown etiology of abdominal pain. Hospital Course Hospital Course: The patient was admitted to acute care, broad-spectrum IV antibiotics were started. Chest x-ray showed the presence of an effusion and as a result followup CT scanning was done. This revealed a moderate pleural effusion and surgery and radiology were consulted and the fluid was tapped under ultrasound guidance yesterday with excellent resolution of some dyspnea symptoms. The patient, continues to have some hypoxia issues as well as hypoxia with exercise, and continues to have evidence of ongoing pneumonitis with cough productive of thick green sputum. Patient will be transferred to swing bed for ongoing antibiotic therapy for the next week. Please note overall prognosis is good, mental status is good, rehabilitation potential is good. Discharge diagnoses Problem List 1. COPD with acute exacerbation 2. Hypoxia 3. Abdominal pain, right upper quadrant 4. Pneumonia involving right lung 5. D-dimer, elevated Medications Medications: Discharge meds are as noted. Follow up Follow up in office in: 1 DAY with: Nilson Coffman MD at 0904
[2016-06-09 09:22] VITALS: BP 132/73
[2016-06-09 09:31] LABS: ALLEN'S TEST ACCEPTABLE; ARTERIAL ABE 12.3 MMOL/L (-2.4-+2.3); ARTERIAL TCO2 37.7 MMOL/L (23-27); OXYGEN 28
[2016-06-09 10:40] LABS: Protein, Body Fluid 2.7 g/dL (.)
== END 2016-06-09 09:37 | disposition swing bed (61) | DRG 190 ==
LOC: 2ND 17:07
PROVIDERS: Family Medicine; Internal Medicine Adolescent Medicine
PROC: 0W993ZZ Drainage of Right Pleural Cavity, Percutaneous Approach (ICD-10-PCS; principal; 2016-06-08)
DX: J44.1 Chronic obstructive pulmonary disease with (acute) exacerbation (principal); J18.9 Pneumonia, unspecified organism; J91.8 Pleural effusion in other conditions classified elsewhere; Z87.891 Personal history of nicotine dependence; I10 Essential (primary) hypertension; R09.02 Hypoxemia; R78.9 Finding of unspecified substance, not normally found in blood; R10.11 Right upper quadrant pain
CPT/HCPCS: J0692; Q9967

== ENCOUNTER 2016-06-09 08:26 | Inpatient (IN) | payer MEDICARE ==
[~2016-06-09] VITALS: Ht 162.6 cm; Wt 55.1 kg
[2016-06-09 08:00] VITALS: BP 130/72
--- NOTE | 2016-06-09 11:01 | PHARMACY CLINIC NOTE ---
Patient Demographics Patient Demographics Admission date: 06/09/16 Date: 06/09/16 Time: 1100 Allergies Coded Allergies: No Known Allergies (05/24/15) HEIGHT- FT: 5 IN: 4.00 VTE General Information Disclaimer The following section includes nursing documentation that has been pulled in for pharmacy review. Patient's VTE score: 3 Patient's VTE Risk: LOW RISK Clinical trial participant? No VTE prophylaxis NQ [id number] VTE prophylaxis ordered? Yes Type of prophylaxis/treatment: COMFORT at 1100
[2016-06-09 20:16] VITALS: BP 131/70
[2016-06-09 23:36] VITALS: BP 131/70
[2016-06-10 07:34] VITALS: BP 131/70
[2016-06-10 08:00] VITALS: BP 110/62
--- NOTE | 2016-06-10 08:44 | HISTORY AND PHYSICAL REPORT ---
Demographics: Admit date: 06/09/16 Chief complaint: Swing bed admission PRIMARY DIAGNOSIS: HYPOXIA Allergies: Coded Allergies: No Known Allergies (05/24/15) History of present illness: History of present illness: History of present illness to acute care: 80 year old female with history of COPD and hypoxia presented to office today with acute onset of abdominal pain last evening. SHe had a restless night without sleep due to pain. Some nausea and some loose stools but no diarrhea. Today pain has been intermittent and more concentrated in the right lower chest and RUQ of abdomen. On exam she was found to be hypoxic with pulse ox of 75% on room air and was admitted for management of likely recurrent CAP and uknown etiology of abdominal pain. Hospital Course in acute care: The patient was admitted to acute care, broad-spectrum IV antibiotics were started. Chest x-ray showed the presence of an effusion and as a result followup CT scanning was done. This revealed a moderate pleural effusion and surgery and radiology were consulted and the fluid was tapped under ultrasound guidance yesterday with excellent resolution of some dyspnea symptoms. The patient, continues to have some hypoxia issues as well as hypoxia with exercise, and continues to have evidence of ongoing pneumonitis with cough productive of thick green sputum. Patient will be transferred to swing bed for ongoing antibiotic therapy for the next week. Please note overall prognosis is good, mental status is good, rehabilitation potential is good. Past medical history: Family HX Diabetes No CAD No Hypertension Yes Hyperlipidemia No Cancer No TB No Immunization HX DT/Tetanus Unknown Flu 2015-FSN Pneumonia Received In Past TB Test in last year No General CAD? No Angina: No IA: No Hypertension? Yes Hyperlipidemia? No CHF? No DVT? No PE? No COPD? Yes Asthma? Yes Anemia? No GERD? No Gastric ulcers? No GI Bleed? No Hernia? No Thyroid Problems? No Hypothyroidism? No CVA? No Seizures? No Diabetes? No Renal Insuffiency? No UTI? Yes Stones? No BPH? No GB Disease: No Nephritic Syndrome? No Asplenia? No Hepatitis? No Sickle Cell Disease? No Arthritis? Yes Migraines? No Cataracts? No Glaucoma? No MRSA? No HIV? No TB? No Anxiety? No Depression? No Cancer? No Past Surgical HX Previous Surgery?N CATARACT SX BI-LAT T&A L-KNEE REPAIR Current home meds: Active Scripts BUDESONIDE/FORMOTEROL FUMARATE (Symbicort 160-4.5 Mcg Inhaler) 2 AER IH BID #1 AER Ref 2 Prov: 01/17/16 UMECLIDINIUM BROMIDE (Incruse Ellipta) 62.5 MCG IH DAILY #1 POW Prov: 01/17/16 Reported Medications HYDROCHLOROTHIAZIDE (Hydrochlorothiazide) 25 MG PO DAILY Albuterol Sulfate (Proair Hfa) 2 PUFF IH Q6HP PRN BREATHING Social Hx: Smoking HX Packs/day 1 1/2 - 2 PACKS Alcohol Alcohol: No Hx of Drug Use Drug Use? No Patien't marital status is single Patient's support system is excellent Review of systems: Constitutional see HPI. Respiratory see HPI. Cardiovascular see HPI Gastrointestinal/Abdominal No no symptoms reported Genitourinary No: no symptoms reported. Musculoskeletal No: no symptoms reported. Neurological No: see HPI. Exam: Admission vital signs: 1ST Vital Signs Result Date Time Pulse Ox 90 06/09 0800 B/P 130/72 06/09 0800 O2 Delivery OXYGEN 06/09 0800 Temp 98.9 06/09 0800 Pulse 91 06/09 0800 Resp 20 06/09 0800 O2 Flow Rate 2 06/09 0900 Exam General appearance: alert Eyes: anicteric Cardiovascular: normal exam, no JVD Respiratory: aerating well, rhonchi, crackles (in right base) ABD: soft, no tenderness Extremities: normal exam, full range of motion Neuro: normal exam, alert Plan: Problem List 1. Pneumonia involving right lung 2. Physical deconditioning 3. COPD with acute exacerbation 4. Hypoxia Plan: Admitted to swing bed as noted in H&P. at 0844
[2016-06-10 19:34] VITALS: BP 120/63
[2016-06-11 07:36] VITALS: BP 108/63
[2016-06-11 07:40] VITALS: BP 108/63
--- NOTE | 2016-06-11 07:45 | ACUTE CARE PROGRESS NOTE (QUA) ---
Progress Notes Subjective Date 06/11/16 Time 0744 Patient/family reports: feeling better, no complaints Nursing reports: alert, no complaints Objective Findings Last VS-Temp:98.4 B/P:108/63 Pulse:80 Resp:20 SaO2:93 OXYGEN Last weight lbs:126 oz:6 K.323 Method:Bed Scales Exam General appearance: alert Eyes: anicteric Cardiovascular: no JVD, no ectopics Respiratory: aerating well, diminished breath sounds (but better) Assessment/Plan Problem List 1. Pneumonia involving right lung 2. Physical deconditioning 3. COPD with acute exacerbation 4. Hypoxia Patient condition Improving Plan: continue current care, Check chest xray in am. This inpt stay is expected to cross 2 MNs from start of care Yes at 0768
[2016-06-11 20:27] VITALS: BP 115/64
[2016-06-12 08:44] VITALS: BP 116/65
[2016-06-12 09:15] VITALS: BP 116/65
--- NOTE | 2016-06-12 09:17 | RADIOLOGY REPORT PS360 ---
CHEST(2 VIEWS-NOT PORTABLE) Ordering Physician: Nilson Coffman MD Patient Age: 80 years: Female HISTORY: f/u pleural effusion follow-up left pleural effusion. Short of breath TECHNIQUE: PA and lateral chest. COMPARISON is made to previous 06/08/2016 post thoracentesis CXR as well as CT chest 06/07/2016 FINDINGS The frontal chest film is rotated to the right which slightly distorts the chest. Right chest Slight progression of the right pleural effusion. [id number] right pleural effusion a more evident than previous 06/08/16 CXR s.. Fluid extends along the major fissure associated with the persistent volume loss & collapse of the RML.-Slight improvement in RML on lateral view. Right pleural effusion yields more evident fluid meniscus right CP angle and posterior sulcus. Airspace disease right base again evident in part reflecting compression atelectasis. Mild residual interstitial infiltrate throughout the right mid and lower chest again seen.. Left chest overall stable Left lung hyperexpanded with mild atelectasis left infrahilar region left base A very small left pleural effusion appears stable. Heart normal size. Pulmonary vascularity upper normal. IMPRESSION . 1. Small/moderate Right pleural effusion. Slight progression since 06/08/2016 postthoracentesis CXR 2. Persistent airspace disease right lower lobe. No improvement RLL - perhaps slight additional compression atelectasis since 06/08/2016 3. Slight overall improvement in region of RML,. Persistent Fluid along the major fissure, w/ prominent atelectasis/partial collapse RML however. However suggestion slight improvement of infiltrate in this region 4. Small left pleural effusion. Stable . 5. Underlying COPD
[2016-06-12 19:45] VITALS: BP 125/100
[2016-06-13 03:12] VITALS: BP 132/84
[2016-06-13 07:34] VITALS: BP 160/67
--- NOTE | 2016-06-13 07:56 | ACUTE CARE PROGRESS NOTE (QUA) ---
Progress Notes Subjective Date 06/13/16 Time 0755 Note Patient continues to feel short of air with low O2 saturations, no fever. Lungs have better air entry, minimal rhonchi in the right lower lung field. Left eye clear. No edema noted. Objective Findings Last VS-Temp:98.1 B/P:160/67 Pulse:81 Resp:20 SaO2:88 OXYGEN Last weight lbs:126 oz:6 K.323 Method:Bed Scales Assessment/Plan Problem List 1. Pneumonia involving right lung 2. Physical deconditioning 3. COPD with acute exacerbation 4. Hypoxia Patient condition Improving Plan: continue current care, slow improvement. Continue rehabilitation and antibiotics. This inpt stay is expected to cross 2 MNs from start of care Yes at 0756
--- NOTE | 2016-06-13 07:56 | ACUTE CARE PROGRESS NOTE (QUA) ---
Progress Notes Subjective Date 06/13/16 Time 0755 Note Patient continues to feel short of air with low O2 saturations, no fever. Lungs have better air entry, minimal rhonchi in the right lower lung field. Left eye clear. No edema noted. Objective Findings Last VS-Temp:98.1 B/P:160/67 Pulse:81 Resp:20 SaO2:88 OXYGEN Last weight lbs:126 oz:6 K.323 Method:Bed Scales Assessment/Plan Problem List 1. Pneumonia involving right lung 2. Physical deconditioning 3. COPD with acute exacerbation 4. Hypoxia Patient condition Improving Plan: continue current care, slow improvement. Continue rehabilitation and antibiotics. This inpt stay is expected to cross 2 MNs from start of care Yes at 0756
[2016-06-13 08:43] VITALS: BP 160/67
[2016-06-13 20:06] VITALS: BP 142/75
[2016-06-14 08:00] VITALS: BP 134/70
[2016-06-14 11:37] VITALS: BP 134/70
[2016-06-14 20:23] VITALS: BP 136/80
[2016-06-15 07:19] VITALS: BP 124/72
[2016-06-15 11:08] VITALS: BP 124/72
--- NOTE | 2016-06-15 11:28 | RADIOLOGY REPORT PS360 ---
CHEST(2 VIEWS-NOT PORTABLE) HISTORY: Pleural effusion/pneumonia f/u effusion ORDERING PHYSICIAN: Nilson Coffman MD PATIENT AGE: 80 years COMPARISON: 06/12/2016 FINDINGS: Normal heart size.. COPD with chronic changes once again noted. Consolidation is present in the right middle lobe. Small right effusion with right basilar atelectasis or consolidation also noted. The right effusion may be slightly smaller when compared to the previous exam. A new parenchymal opacity is present in the left lower lung zone and may be due to an area of atelectasis. Small left effusion noted and has improved. IMPRESSION: 1. No change consolidation of the right middle lobe. Continued atelectasis or infiltrate in the right lower lobe 2. Small bilateral pleural effusions. These have slightly decreased in size. The right effusion is larger than the left. 3. New parenchymal opacity left mid to lower lung zone probably related to an area of atelectasis
[2016-06-15 20:28] VITALS: BP 152/74
[2016-06-16] MEDS ORDERED: AMLODIPINE5 M1 PO (08:07)
--- NOTE | 2016-06-16 08:10 | DISCHARGE SUMMARY STANDARD ---
Demographics Admit date: 06/09/16 Discharge date: 06/16/16 History of present illness History of present illness History of present illness to acute care: 80 year old female with history of COPD and hypoxia presented to office today with acute onset of abdominal pain last evening. SHe had a restless night without sleep due to pain. Some nausea and some loose stools but no diarrhea. Today pain has been intermittent and more concentrated in the right lower chest and RUQ of abdomen. On exam she was found to be hypoxic with pulse ox of 75% on room air and was admitted for management of likely recurrent CAP and uknown etiology of abdominal pain. Hospital Course in acute care: The patient was admitted to acute care, broad-spectrum IV antibiotics were started. Chest x-ray showed the presence of an effusion and as a result followup CT scanning was done. This revealed a moderate pleural effusion and surgery and radiology were consulted and the fluid was tapped under ultrasound guidance yesterday with excellent resolution of some dyspnea symptoms. The patient, continues to have some hypoxia issues as well as hypoxia with exercise, and continues to have evidence of ongoing pneumonitis with cough productive of thick green sputum. Patient will be transferred to swing bed for ongoing antibiotic therapy for the next week. Please note overall prognosis is good, mental status is good, rehabilitation potential is good. Hospital Course Hospital Course: Patient was admitted to swing bed, met goals of therapy, including finishing her antibiotic therapy. She continued to require oxygen as expected. No major problems were noted. Chest x-ray showed continuing improvement of her effusion. Plan Will be to transfer her to [facility] facility today to continue PT/ oxygen therapy/pulmonary support. [facility]. Only medication change on discharge is adding amlodipine 5 mg daily for blood pressure to avoid RAVINDER inhibitors/diuretics with slightly worsened renal function. She may need CT surgery consultation for residual effusion in the next couple of weeks. Discharge diagnoses Problem List 1. Pneumonia involving right lung 2. Physical deconditioning 3. COPD with acute exacerbation 4. Hypoxia 5. Pleural effusion Medications Medications: Discharge meds are as noted. Follow up Follow up in office in: 5 DAYS with: Jil Omer APRN at 0810
[2016-06-16 08:39] VITALS: BP 105/65
[2016-06-16 12:25] VITALS: BP 105/65
[2016-06-16 12:35] VITALS: BP 105/65
== END 2016-06-16 12:35 | DRG 190 ==
LOC: 2ND 08:26
DX: J44.1 Chronic obstructive pulmonary disease with (acute) exacerbation (principal); J18.9 Pneumonia, unspecified organism; J91.8 Pleural effusion in other conditions classified elsewhere; Z87.891 Personal history of nicotine dependence; I10 Essential (primary) hypertension; R09.02 Hypoxemia
CPT/HCPCS: J0692

== ENCOUNTER → 2016-06-30 | Outpatient (CLI) | payer MEDICARE ==
[~2016-06-30] MED LIST changes: +AMLODIPINE5 M1 PO
--- NOTE | 2016-06-30 10:27 | RADIOLOGY REPORT PS360 ---
CHEST(2 VIEWS-NOT PORTABLE) HISTORY: Shortness of breath, pleural effusion PLEURAL EFFUSION ORDERING PHYSICIAN: Nilson Coffman MD PATIENT AGE: 80 years COMPARISON: 06/15/2016 FINDINGS: Normal heart size.. Chronic changes are once again noted with COPD and with chronic blunting of the right CP angle and persistent right middle lobe collapse. Opacity is once again noted in the right perihilar region suspicious for an area of pneumonia/atelectatic change slightly more apparent on today's exam. Minimal atelectasis or infiltrate also noted in the lingula unchanged. There remains chronic changes in the right lower lobe consistent with atelectasis and/or infiltrate with right-sided effusion. The right pleural effusion may be slightly smaller compared to the previous exam. IMPRESSION: 1. Chronic change with COPD and persistent right middle lobe collapse. 2. Slight decrease in size of right effusion with consistent airspace disease in the right midlung, right lower lobe, and lingula slightly more prominent in the right upper lobe/perihilar region compared to the previous exam
== END ==
LOC: RAD 09:46
DX: J90 Pleural effusion, not elsewhere classified (principal)

== ENCOUNTER → 2016-10-27 | Outpatient (CLI) | payer MEDICARE ==
[~2016-10-27] MED LIST changes: +ASPIRIN 81MG TA81 MG PO; +CEFDINIR300 MG PO; +FOLBIC RF1 TAB PO; +LATANOPROST 2.2.5 ML OP; +TIMOLOL MALEATE10 M1 OP; +TRINTELLIX PO
[2016-10-27 09:19] LABS: HEMOGLOBIN 12.2 g/dL (12.2-16.2); LYMPH % 17.3 % (10-50.0)
[2016-10-27 09:30] LABS: BUN 15 mg/dL (7-18); GFR (ESTIMATED) 81 ML/MIN (59-)
--- NOTE | 2016-10-27 10:18 | RADIOLOGY REPORT PS360 ---
CHEST(2 CHEST(2 VIEWS-NOT PORTABLE) HISTORY: SHORTNESS OF BREATH Patient Age: 80 years: Female Ordering Physician: OLIVIA MARTINS APRN TECHNIQUE: PA and lateral chest COMPARISON :10/23/2016 & 08/04/2016 FINDINGS Underlying COPD. chronic changes emphysematous changes noted. What I believe was a subtle Interstitial infiltrate seen on the most recent 10/23/2016 chest film seems to have improved in the interval. The lungs appear overall are expanded is slightly clear with less interstitial prominence. No focal pneumonia seen today. Blunted the CP angles reflects chronic changes as does the tenting at the right diaphragm. Heart suzanna and mediastinal structures unchanged. T-spine stable. No new findings. Mild superior endplate compression at posterior T11 appears stable The thickening along the right major fissure is seen on May 2016 CT persist along with some chronic scarring here. IMPRESSION: Slight overall Improvement since recent chest film 10/23/2016. With chest I believe near or at baseline The suspect minimal infiltrate on prior studies is shown interval improvemen & regression t. COPD. Emphysema and underlying chronic changes again observed. No new findings.
== END ==
LOC: RAD 09:03
PROVIDERS: Nurse Practitioner Family
DX: R06.02 Shortness of breath (principal); R11.0 Nausea; R53.1 Weakness

== ENCOUNTER → 2017-01-23 | Outpatient (CLI) | payer MEDICARE ==
--- NOTE | 2017-01-23 16:40 | RADIOLOGY REPORT PS360 ---
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 COMPARISON: 06/07/2016 FINDINGS: There is atherosclerotic calcification of the aortic arch and coronary arteries. Normal heart size without evidence of pericardial effusion. Calcified nodes are present in the mediastinum. There is an 18 x 14 mm precarinal lymph node which is unchanged. No mediastinal or hilar mass evident. Extensive centrilobular emphysematous changes. The previously noted right-sided pleural effusion and consolidation within the right lower and right middle lobe as resolved. There is some mild bronchial thickening and evidence of old granulomatous disease. A 5 mm nodular density is present in the right minor fissure anteriorly may be due to small lymph node. 3 mm noncalcified nodule is present in the right lobe laterally and right upper lobe anteriorly unchanged. 4 mm nodular opacity right middle lobe anteriorly nonspecific The infiltrate within the lingula has resolved No suspicious pulmonary nodules. No lobar consolidation or collapse. There is mild thoracic scoliosis convex left. No acute bony findings. Upper abdominal images demonstrates a stable isodense lesion of the anterior segment of the right hepatic lobe at 9 mm as well as an isodensity in the region of the falciform ligament and may be due to focal fatty infiltration. 4 mm isodensity in the lateral segment left hepatic lobe unchanged. IMPRESSION: 1. Interval resolution of the bilateral pneumonia and bilateral pleural effusions 2. Centrilobular emphysematous changes with nonspecific probably benign pulmonary nodular opacities. 3. Coronary artery disease
== END ==
LOC: RAD 10:53 → RT 11:30
DX: R06.02 Shortness of breath (principal); J96.10 Chronic respiratory failure, unspecified whether with hypoxia or hypercapnia